=== PATIENT | male | born 1955 | race Caucasian/White ===

== ENCOUNTER 2020-08-06 21:23 | Emergency (ER) | payer BC ==
[2020-08-06 21:50] LABS: CHLORIDE,CL 101 mmol/L (98-107); SODIUM,NA 139 mmol/L (136-145)
[2020-08-06] MEDS ORDERED: methylPREDNISolone Sodium Succinate 125 MG/2 ML SDV IVPUSH ONE (21:59)
[2020-08-06] MEDS ORDERED: Albuterol/Ipratropium 3.0-0.5 MG/3 ML Neb Soln NEB ONE (21:59)
[2020-08-06] MEDS ORDERED: cefTRIAXone 1 GM in Sodium Chloride 0.9% 50 ML IV ONE (21:59)
--- NOTE | 2020-08-06 22:12 | EDM.PDOC ---
ED HPI GENERAL MEDICAL PROBLEM - General Chief Complaint: Respiratory Problem Stated Complaint: AMBULANCE Time Seen by Provider: 08/06/20 21:54 Source of Information: Reports: Long Term Records History Limitations: Reports: No Limitations - History of Present Illness INITIAL COMMENTS - FREE TEXT/NARRATIVE: This 64 yo male patient was brought to the ED by [facility] due to increased shortness of breath. The patient reports he was in the same building as a person with COVID last Tuesday (the other person got their results on Tuesday). The patient reports he started to have a sore throat over the weekend with increasing shortness of breath. The patient has a history of COPD, A Fib and a previous bypass. The patient reports he did use his inhaler about 2 hours prior to calling the ambulance with no symptom improvement. EMS reports the patient's oxygen saturation was 80% at initial presentation. The patient reports he continues to smoke about 1/2 pack of cigarettes per day. 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: Breathing Treatments - Related Data Allergies Allergy/AdvReac Type Severity Reaction Status Date / Time No Known Allergies Allergy Verified 08/06/20 21:23 Home Meds: Home Meds Albuterol Sulfate [Albuterol Sulfate Hfa] 2 puff PRN 08/06/20 [History] Aspirin 81 mg PO 08/06/20 [History] Fluticasone Propion/Salmeterol [Advair 250-50 Diskus] 08/06/20 [History] Rivaroxaban [Xarelto] 20 mg PO 08/06/20 [History] Sacubitril/Valsartan [Entresto 49 mg-51 mg Tablet] 08/06/20 [History] atorvaSTATin Calcium [Lipitor] 20 mg PO 08/06/20 [History] carvediloL [Carvedilol] 25 mg PO BID 08/06/20 [History] ED ROS GENERAL - Review of Systems Review Of Systems: Comprehensive ROS is negative, except as noted in HPI. ED EXAM, GENERAL - Physical Exam Exam: See Below Exam Limited By: No Limitations General Appearance: Alert, WD/WN, Moderate Distress Eye Exam: Right Eye: EOMI, Normal Inspection, PERRL, Left Eye: Other (Prostetic) Ears: Normal External Exam, Normal Canal, Hearing Grossly Normal, Normal TMs Nose: Normal Inspection, Normal Mucosa, No Blood Throat/Mouth: Normal Inspection, Normal Lips, Normal Teeth, Normal Gums, Normal Oropharynx, Normal Voice, No Airway Compromise Head: Atraumatic, Normocephalic Neck: Normal Inspection, Supple, Non-Tender, Full Range of Motion Respiratory/Chest: Decreased Breath Sounds, Rhonchi, Wheezing, Prolonged Expiration Cardiovascular: Normal Peripheral Pulses, Regular Rate, Rhythm, No Edema, No Gallop, No JVD, No Murmur, No Rub GI/Abdominal: Normal Bowel Sounds, Soft, Non-Tender, No Organomegaly, No Distention, No Abnormal Bruit, No Mass (Male) Exam: Deferred Rectal (Males) Exam: Deferred Back Exam: Normal Inspection, Full Range of Motion, NT Extremities: Normal Inspection, Normal Range of Motion, Non-Tender, Normal Capillary Refill, No Pedal Edema Neurological: Alert, Oriented, CN II-XII Intact, Normal Cognition, Normal Gait, Normal Reflexes, No Motor/Sensory Deficits Psychiatric: Normal Affect, Normal Mood Skin Exam: Warm, Dry, Intact, Normal Color, No Rash Lymphatic: No Adenopathy Course - Vital Signs Last Recorded V/S: Last Vital Signs Temp 36.2 C 08/06/20 21:29 Pulse 125 H 08/06/20 21:29 Resp 24 H 08/06/20 21:29 BP 152/101 H 08/06/20 21:29 Pulse Ox 94 L 08/06/20 21:29 - Orders/Labs/Meds Orders: Active Orders 24 hr Category Date Time Status RT Aerosol Therapy [RC] ASDIRECTED Care 08/06/20 22:00 Ordered CULTURE BLOOD [BC] Stat Lab 08/06/20 21:16 Results Isolation [COMM] Routine Oth 08/06/20 21:06 Active Labs: Laboratory Tests 08/06/20 08/06/20 08/06/20 Range/Units 21:16 21:16 21:16 WBC 14.2 H (5.0-10.0) 10^3/uL RBC 4.93 (4.6-6.2) 10^6/uL Hgb 15.7 (14.0-18.0) g/dL Hct 45.4 (40.0-54.0) % MCV 92.1 (80-100) fL MCH 31.8 (27.0-34.0) pg MCHC 34.6 (33.0-35.0) g/dL Plt Count 168 (150-450) 10^3/uL Neut % (Auto) 75.4 H (42.2-75.2) % Lymph % (Auto) 8.9 L (20.5-50.1) % Weber % (Auto) 10.0 H (2-8) % Eos % (Auto) 5.3 H (1.0-3.0) % Baso % (Auto) 0.4 (0.0-1.0) % D-Dimer, Quantitative < 100 (0-400) ng/mL Sodium 139 (136-145) mmol/L Potassium 4.0 (3.5-5.1) mmol/L Chloride 101 (98-107) mmol/L Carbon Dioxide 32 (21-32) mmol/L Anion Gap 10.0 (7-13) mEq/L BUN 7 (7-18) mg/dL Creatinine 0.87 (0.70-1.30) mg/dL Est Cr Clr Drug Dosing 105.22 mL/min Estimated GFR (MDRD) > 60 BUN/Creatinine Ratio 8.0 (No establ ref range) Glucose 116 H (74-99) mg/dL Lactic Acid (0.4-2.0) mmol/L Calcium 8.4 L (8.5-10.1) mg/dL Total Bilirubin 0.7 (0.2-1.0) mg/dL AST 19 (15-37) U/L ALT 23 (16-63) U/L Alkaline Phosphatase 88 (46-116) U/L B-Natriuretic Peptide 257 H (0-100) pg/ml Total Protein 6.6 (6.4-8.2) g/dL Albumin 3.6 (3.4-5.0) g/dL Globulin 3.0 Albumin/Globulin Ratio 1.2 SARS CoV-2 RNA Rapid HAYLEE (NEGATIVE) 08/06/20 08/06/20 Range/Units 21:16 21:17 WBC (5.0-10.0) 10^3/uL RBC (4.6-6.2) 10^6/uL Hgb (14.0-18.0) g/dL Hct (40.0-54.0) % MCV (80-100) fL MCH (27.0-34.0) pg MCHC (33.0-35.0) g/dL Plt Count (150-450) 10^3/uL Neut % (Auto) (42.2-75.2) % Lymph % (Auto) (20.5-50.1) % Weber % (Auto) (2-8) % Eos % (Auto) (1.0-3.0) % Baso % (Auto) (0.0-1.0) % D-Dimer, Quantitative (0-400) ng/mL Sodium (136-145) mmol/L Potassium (3.5-5.1) mmol/L Chloride (98-107) mmol/L Carbon Dioxide (21-32) mmol/L Anion Gap (7-13) mEq/L BUN (7-18) mg/dL Creatinine (0.70-1.30) mg/dL Est Cr Clr Drug Dosing mL/min Estimated GFR (MDRD) BUN/Creatinine Ratio (No establ ref range) Glucose (74-99) mg/dL Lactic Acid 1.3 (0.4-2.0) mmol/L Calcium (8.5-10.1) mg/dL Total Bilirubin (0.2-1.0) mg/dL AST (15-37) U/L ALT (16-63) U/L Alkaline Phosphatase (46-116) U/L B-Natriuretic Peptide (0-100) pg/ml Total Protein (6.4-8.2) g/dL Albumin (3.4-5.0) g/dL Globulin Albumin/Globulin Ratio SARS CoV-2 RNA Rapid HAYLEE Negative (NEGATIVE) Meds: Medications Discontinued Medications Generic Name Dose Route Start Last Admin Trade Name Freq PRN Reason Stop Dose Admin Albuterol/Ipratropium 3 ml 08/06/20 21:59 08/06/20 22:18 Duoneb 3.0-0.5 Mg/3 Ml NEB 08/06/20 22:00 3 ml ONETIME ONE Administration Ceftriaxone Sodium 1 gm/ 50 mls @ 100 mls/hr 08/06/20 21:59 08/06/20 22:18 Sodium Chloride IV 08/06/20 22:28 100 mls/hr ONETIME ONE Administration Methylprednisolone Sodium Succinate 125 mg 08/06/20 21:59 08/06/20 22:18 Solu-Medrol IVPUSH 08/06/20 22:00 125 mg ONETIME ONE Administration - Re-Assessments/Exams Free Text/Narrative Re-Assessment/Exam: 08/06/20 22:49 The patient reports symptom improvement. Departure - Departure Time of Disposition: 22:49 Disposition: Home, Self-Care 01 Condition: Fair Clinical Impression: COPD with exacerbation - Discharge Information *PRESCRIPTION DRUG MONITORING PROGRAM REVIEWED*: Not Applicable *COPY OF PRESCRIPTION DRUG MONITORING REPORT IN PATIENT BOB: Not Applicable Instructions: Chronic Obstructive Pulmonary Disease Exacerbation, [id number] Forms: ED Department Discharge Care Plan Goals: The patient was advised of the examination, lab and x-ray results during the visit. The patient was given IV Solumedrol, IV Rocephin and a nebulized albuterol treatment while in the ED. The patient was discharged with a script for Azithromycin (250 mg) #6 to take 2 by mouth on day 1 and 1 by mouth on days 2-5 as well as for Prednisone (20 mg) #10 to take 2 by mouth daily for 5 days. If the patient has any additional symptoms or concerns, the patient should either return to the emergency department or visit his primary care facility. Sepsis Event Note (ED) - Evaluation Sepsis Screening Result: No Definite Risk - Focused Exam Vital Signs: Vital Signs Temp Pulse Resp BP Pulse Ox 08/06/20 21:29 36.2 C 125 H 24 H 152/101 H 94 L - My Orders Last 24 Hours: My Active Orders 08/06/20 21:06 Isolation [COMM] Routine 08/06/20 21:16 CULTURE BLOOD [BC] Stat 08/06/20 22:00 RT Aerosol Therapy [RC] ASDIRECTED - Assessment/Plan Last 24 Hours: My Active Orders 08/06/20 21:06 Isolation [COMM] Routine 08/06/20 21:16 CULTURE BLOOD [BC] Stat 08/06/20 22:00 RT Aerosol Therapy [RC] ASDIRECTED
--- NOTE | 2020-08-06 22:24 | CR ---
PROCEDURE INFORMATION: Exam: XR Chest, 2 Views Exam date and time: 08/06/2020 9:52 PM Age: 64 years old Clinical indication: Shortness of breath; Additional info: Short of breath TECHNIQUE: Imaging protocol: XR of the chest Views: 2 views. COMPARISON: No relevant prior studies available. FINDINGS: Lungs: Mild hyperinflation. Pleural space: Unremarkable. No pleural effusion. No pneumothorax. Heart/Mediastinum: Unremarkable. No cardiomegaly. Bones/joints: Anterior thoracic spurs. Sternotomy wires IMPRESSION: Hyperinflation. Clear lungs.
== END 2020-08-06 23:26 | disposition home or self-care (01) ==
LOC: DL.ED 21:23
DX: J44.1 Chronic obstructive pulmonary disease with (acute) exacerbation (principal); Z20.828 Contact with and (suspected) exposure to other viral communicable diseases; Z79.82 Long term (current) use of aspirin; Z79.01 Long term (current) use of anticoagulants; Z79.899 Other long term (current) drug therapy
CPT/HCPCS: 36415; 71046; 80053; 83605; 83880; 85025; 85379; 87040; 87635; 87804; 96365; 96375; 99285; J0696; J2930; J7050; J7620-GY; U0002

== ENCOUNTER 2022-12-03 23:24 | Emergency (ER) | payer BC ==
[2022-12-03] MEDS ORDERED: Albuterol/Ipratropium 3.0-0.5 MG/3 ML Neb Soln NEB ONE (23:32)
[2022-12-04 00:07] LABS: ANION GAP 10.3 mEq/L (7-13)
[2022-12-04] MEDS ORDERED: cefTRIAXone 1 GM Vial IVPUSH ONE (00:18)
[2022-12-04 00:20] LABS: CORONAVIRUS COVID-19 NAA NEGATIVE (NEGATIVE)
[2022-12-04] MEDS ORDERED: Potassium Chloride 10 MEQ Tab.ER PO ONE (00:29)
== END 2022-12-04 00:53 | disposition home or self-care (01) ==
LOC: DL.ED 23:24
DX: J18.9 Pneumonia, unspecified organism (principal); I48.91 Unspecified atrial fibrillation; J44.9 Chronic obstructive pulmonary disease, unspecified; Z95.1 Presence of aortocoronary bypass graft; Z79.82 Long term (current) use of aspirin; Z79.01 Long term (current) use of anticoagulants; Z79.899 Other long term (current) drug therapy; Z20.822 Contact with and (suspected) exposure to COVID-19
CPT/HCPCS: 0240U; 36415; 71046; 80053; 81001; 83880; 84484; 85025; 93005; 93010; 94640; 96374; 99284; 99285-25; A9270-GY; J0696; J7620-GY

== ENCOUNTER 2025-07-22 08:33 | Emergency (ER) | payer BC ==
[2025-07-22 08:53] LABS: BASOPHILS PERCENT AUTO 1.0 % (0.0-1.0); EOSINOPHILS PERCENT AUTO 4.2 % (1.0-3.0); LYMPHOCYTES PERCENT AUTO 15.7 % (20.5-50.1); MONOCYTES PERCENT AUTO 9.7 % (2-8); NEUTROPHILS PERCENT AUTO 69.4 % (42.2-75.2); PLATELET COUNT,PLT 214 10^3/uL (150-450); RED BLOOD CELL COUNT 5.41 10^6/uL (4.6-6.2); WHITE BLOOD CELL COUNT,WBC 6.3 10^3/uL (5.0-10.0)
[2025-07-22 09:16] LABS: A/G RATIO 1.1; ALANINE AMINOTRANSFERASE,ALT 27.0 U/L (16-63); ASPARTATE AMNIOTRANSFERASE,AST 18.0 U/L (15-37); BILIRUBIN TOTAL 0.4 mg/dL (0.2-1.0); BLOOD UREA NITROGEN,BUN 15.0 mg/dL (7-18); CARBON DIOXIDE,CO2 31.0 mmol/L (21-32); CHLORIDE,CL 106.0 mmol/L (98-107); CREATININE 1.03 mg/dL (0.70-1.30); EST CRCL DRUG DOSING (CG) 80.91 mL/min; GLUCOSE RANDOM 123.0 mg/dL (70-99); POTASSIUM,K 3.8 mmol/L (3.5-5.1); PROTEIN TOTAL,TP 7.5 g/dL (6.4-8.2); SODIUM,NA 143.0 mmol/L (136-145)
[2025-07-22 09:17] LABS: ESTIMATED GFR 80.0 mL/min (>=60)
== END 2025-07-22 10:14 | disposition home or self-care (01) ==
LOC: DL.ED 08:33
DX: I48.91 Unspecified atrial fibrillation (principal); R61 Generalized hyperhidrosis; R00.2 Palpitations; J44.9 Chronic obstructive pulmonary disease, unspecified; Z79.82 Long term (current) use of aspirin; Z79.899 Other long term (current) drug therapy; Z79.02 Long term (current) use of antithrombotics/antiplatelets; Z95.1 Presence of aortocoronary bypass graft
CPT/HCPCS: 36415; 71045; 80053; 83735; 84484; 85025; 93005; 93010; 99285